=== PATIENT | male | born 1970 | race Caucasian/White ===

== ENCOUNTER 2016-10-17 20:43 | Emergency (ER) | payer OTHER ==
[2016-10-17] MEDS ORDERED: KETOROLAC 30 MG/ML 1 ML VIAL IVP STA (21:19)
[2016-10-17 21:29] LABS: Basophils # (A) 0.1 k/uL (0-0.2); Basophils % (A) 1 %; CH 30.8; CHCM 34.4; Eosinophils # (A) 0.2 k/uL (0-0.7); Eosinophils % (A) 3 %; HCT 42.1 % (39.0-53.0); HDW 2.75; HGB 14.7 gm/dL (13.0-17.5); Luc # (Auto) 0.21; Luc % (Auto) 3; Lymphocytes # (A) 2.9 k/uL (1.0-4.8); Lymphocytes % (A) 45 %; MCH 31.4 pg (25.0-35.0); MCHC 34.9 g/dL (31.0-37.0); Mean Platelet Volume 6.5; Monocytes # (A) 0.3 k/uL (0-1.0); Monocytes % (A) 5 %; Neutrophils # (A) 2.7 k/uL (1.3-7.7); Neutrophils % (A) 43 %; RBC 4.68 m/uL (4.30-5.90); RDW 13.2 % (11.5-15.5); WBC 6.4 k/uL (3.8-10.6); WBC (Perox) 6.35
--- NOTE | 2016-10-17 21:29 | ED ---
Fall HPI - General Chief Complaint: Fall Stated Complaint: confusion/seizure Time Seen by Provider: 10/17/16 21:08 Source: patient, family Mode of arrival: ambulatory - History of Present Illness Initial Comments: Patient's a 45-year-old man who presents to be evaluated after a fall. Patient believes she was sitting on the side of his bed and fell onto the floor. He is not sure he states he may have had a seizure as he does have seizure disorder. The patient's was in another room, heard the fall and went to check on him. She states that he was not able to tell her exactly what happened. He complains of lumbar back and left hip pain. He denies any other injury. He denies headache or neck pain. He is not having any chest pain, dyspnea or cough. The patient denies abdominal pain. MD Complaint: fall Onset/Timin -: hour(s) Fall From: out of bed When Fall Occurred: 1 hour [employer] Fall Witnessed: no Place Fall Occurred: home Loss of Consciousness: unsure Prolonged Down Time?: no Symptoms Prior to Fall: none Location: back Severity: severe - Related Data Home Medications Medication Instructions Recorded Confirmed Escitalopram [Lexapro] 20 mg PO DAILY 12/31/13 10/17/16 Acetaminophen with Codeine 1 tab PO TID PRN 04/23/16 10/17/16 [Acetaminophen-Cod #3 Tablet] Aspirin EC [Ecotrin Low Dose] 81 mg PO DAILY 04/23/16 10/17/16 Metoprolol Succinate [Toprol XL] 12.5 mg PO DAILY 04/23/16 10/17/16 Naproxen 500 mg PO BID PRN 04/23/16 10/17/16 busPIRone HCL 15 mg PO BID 04/23/16 10/17/16 Cholecalciferol [Vitamin D3] 2,000 unit PO DAILY 10/17/16 10/17/16 Cyclobenzaprine [Flexeril] 10 mg PO Q8H PRN 10/17/16 10/17/16 Melatonin 5 mg PO HS 10/17/16 10/17/16 Multivitamin [Men's Multi-Vitamin] 1 tab PO DAILY 10/17/16 10/17/16 Nitroglycerin Sl Tabs [Nitrostat] 0.4 mg SUBLINGUAL Q5M PRN 10/17/16 10/17/16 [place]-3 Fatty Acids/Fish Oil [Fish 1 cap PO DAILY 10/17/16 10/17/16 Oil 1,000 mg Softgel] Simvastatin [Zocor] 40 mg PO HS 10/17/16 10/17/16 Topiramate [Topamax] 50 mg PO BID 10/17/16 10/17/16 busPIRone HCL [Buspar] 7.5 mg PO HS 10/17/16 10/17/16 traZODone HCL 50 mg PO HS 10/17/16 10/17/16 Allergies Allergy/AdvReac Type Severity Reaction Status Date / Time carbamazepine [From Tegretol] Allergy Swelling/Se Verified 10/17/16 21:06 izure Penicillins Allergy Per Verified 10/17/16 21:06 Allergy Test Review of Systems ROS Statement: Those systems with pertinent positive or pertinent negative responses have been documented in the HPI. ROS Other: All systems not noted in ROS Statement are negative. Constitutional: Denies: fever, chills, weakness Eyes: Denies: vision change ENT: Denies: epistaxis Respiratory: Denies: cough, dyspnea Cardiovascular: Denies: chest pain, palpitations Gastrointestinal: Denies: abdominal pain, vomiting, diarrhea, melena, hematochezia Genitourinary: Denies: dysuria, hematuria, testicular pain Musculoskeletal: Reports: as per HPI, back pain, arthralgia Skin: Denies: rash Neurological: Denies: headache, weakness, numbness Past Medical History Past Medical History: Asthma, Cancer, Hyperlipidemia, Myocardial Infarction ([place]) Additional Past Medical History / Comment(s): epileptic , chronic back pain Last Myocardial Infarction Date:: 2000 History of Any Multi-Drug Resistant Organisms: None Reported Past Surgical History: Back Surgery Past Anesthesia/Blood Transfusion Reactions: No Reported Reaction Past Psychological History: PTSD Smoking Status: Light tobacco smoker Past Alcohol Use History: Occasional Past Drug Use History: None Reported General Exam Limitations: no limitations General appearance: alert, in no apparent distress Head exam: Present: atraumatic, normocephalic, normal inspection Eye exam: Present: normal appearance. Absent: scleral icterus, conjunctival injection ENT exam: Present: normal oropharynx Neck exam: Present: normal inspection, full ROM Respiratory exam: Present: normal lung sounds bilaterally. Absent: respiratory distress, wheezes, rales, rhonchi, stridor Cardiovascular Exam: Present: regular rate, normal rhythm, normal heart sounds. Absent: systolic murmur, diastolic murmur, rubs, gallop GI/Abdominal exam: Present: soft. Absent: distended, tenderness, guarding, rebound Back exam: Present: normal inspection, vertebral tenderness. Absent: CVA tenderness (R), CVA tenderness (L), paraspinal tenderness Neurological exam: Present: alert, oriented X3, CN II-XII intact, reflexes normal. Absent: motor sensory deficit Skin exam: Present: warm, dry, intact, normal color. Absent: rash Course Vital Signs 10/17/16 10/17/16 20:44 21:02 Temperature 98.2 F Pulse Rate 73 77 Respiratory 20 16 Rate Blood Pressure 146/84 152/88 O2 Sat by Pulse 99 98 Oximetry Medical Decision Making - Lab Data Result diagrams: 10/17/16 21:10 10/17/16 21:21 Lab Results 10/17/16 10/17/16 Range/Units 21:10 21:21 WBC 6.4 (3.8-10.6) k/uL RBC 4.68 (4.30-5.90) m/uL Hgb 14.7 (13.0-17.5) gm/dL Hct 42.1 (39.0-53.0) % MCV 90.0 (80.0-100.0) fL MCH 31.4 (25.0-35.0) pg MCHC 34.9 (31.0-37.0) g/dL RDW 13.2 (11.5-15.5) % Plt Count 229 (150-450) k/uL Neutrophils % 43 % Lymphocytes % 45 % Monocytes % 5 % Eosinophils % 3 % Basophils % 1 % Neutrophils # 2.7 (1.3-7.7) k/uL Lymphocytes # 2.9 (1.0-4.8) k/uL Monocytes # 0.3 (0-1.0) k/uL Eosinophils # 0.2 (0-0.7) k/uL Basophils # 0.1 (0-0.2) k/uL Sodium 139 (137-145) mmol/L Potassium 4.3 (3.5-5.1) mmol/L Chloride 109 H (98-107) mmol/L Carbon Dioxide 22 (22-30) mmol/L Anion Gap 8 mmol/L BUN 22 H (9-20) mg/dL Creatinine 0.90 (0.66-1.25) mg/dL Est GFR (MDRD) Af Amer >60 (>60 ml/min/1.73 sqM) Est GFR (MDRD) Non-Af >60 (>60 ml/min/1.73 sqM) Glucose 93 (74-99) mg/dL Calcium 9.0 (8.4-10.2) mg/dL Disposition Clinical Impression: Fall, Back contusion Disposition: HOME SELF-CARE Condition: Good Instructions: Contusion in Adults (ED) Referrals: Shahriar Wright DO [Primary Care Provider] - 1-2 days
[2016-10-17 21:42] LABS: Anion Gap 8 mmol/L; Blood Urea Nitrogen 22 mg/dL (9-20); Carbon Dioxide 22 mmol/L (22-30); Chloride 109 mmol/L (98-107); Glucose 93 mg/dL (74-99); Non-African American GFR(MDRD) >60 (>60 ml/min/1.73 sqM); Potassium 4.3 mmol/L (3.5-5.1); Sodium 139 mmol/L (137-145)
--- NOTE | 2016-10-17 21:49 | XR ---
EXAMINATION TYPE: XR lumbar spine 2 or 3V DATE OF EXAM: 10/17/2016 9:35 PM CLINICAL HISTORY: pain TECHNIQUE: Three views of the lumbar spine are submitted. COMPARISON: None. FINDINGS: There are 5 lumbar type vertebral bodies identified. The lumbar spine shows satisfactory alignment w ithout evidence of acute fracture or dislocation. Vertebral body heights are within normal limits. Moderate degenerative disc space narrowing at L4-5 and L5-S1 ventral spondylosis. The overlying soft tissue appears unremarkable. IMPRESSION: No acute fracture or dislocation is seen in the lumbar spine. ICD 10 NO FRACTURE, INITIAL EVALUATION
--- NOTE | 2016-10-17 21:50 | XR ---
EXAMINATION TYPE: XR Hip Complete LT DATE OF EXAM: 10/17/2016 9:35 PM CLINICAL HISTORY: pain TECHNIQUE: AP and frogleg views of the left hip are obtained. COMPARISON: None. FINDINGS: There is no acute fracture/dislocation evident. The joint space appears within normal li mits. The overlying soft tissue appears unremarkable. IMPRESSION: 1. There is no acute fracture or dislocation.ICD 10 NO FRACTURE, INITIAL EVALUATION
[2016-10-17] MEDS ORDERED: BACLOFEN 10 MG TAB PO STA (23:10)
[2016-10-17 23:32] VITALS: BP 138/78; PULSE 66; RESP 18; TEMP 99
== END 2016-10-17 23:32 | disposition home or self-care (01) ==
LOC: EC 20:43
DX: S30.0XXA Contusion of lower back and pelvis, initial encounter (principal); M25.552 Pain in left hip; J45.909 Unspecified asthma, uncomplicated; E78.5 Hyperlipidemia, unspecified; I25.2 Old myocardial infarction; F17.200 Nicotine dependence, unspecified, uncomplicated; Z85.9 Personal history of malignant neoplasm, unspecified; Z79.82 Long term (current) use of aspirin; Z88.0 Allergy status to penicillin; Z88.8 Allergy status to other drugs, medicaments and biological substances; W06.XXXA Fall from bed, initial encounter; Y92.009 Unspecified place in unspecified non-institutional (private) residence as the place of occurrence of the external cause
CPT/HCPCS: 36415; 80048; 85025; 72100; 73502; 99284; 96374; J1885

== ENCOUNTER 2016-10-28 11:40 | Emergency (ER) | payer OTHER ==
--- NOTE | 2016-10-28 12:28 | ED ---
General Adult HPI - General Chief complaint: Back Pain/Injury Stated complaint: Back/Hip Pain/Tingling in legs Time Seen by Provider: 10/28/16 12:01 Source: patient, RN notes reviewed Mode of arrival: wheelchair Limitations: no limitations - History of Present Illness Initial comments: Patient 45-year-old male who presents emergency room today with a chief complaint of pain to his lower back and left hip area. He states it's worse with ambulation when he put weight on the left leg. Patient does admit to a back injury with a fall after a seizure that occurred 11 days ago. He states that he was warned that he would not feel well for 10 days. He states he still not feeling well and was advised to return to emergency room if any symptoms increase. He does admit to pain that radiates down the left leg. He admits some numbness and tingling at times. Denies any bowel or bladder incontinence or retention. Denies any saddle anesthesia. Patient denies any recent fever, chills, shortness of breath, chest pain, abdominal pain, nausea or vomiting, dysuria or hematuria, constipation or diarrhea, headaches or visual changes, or any other complaints. - Related Data Home Medications Medication Instructions Recorded Confirmed Escitalopram [Lexapro] 20 mg PO DAILY 12/31/13 10/28/16 Acetaminophen with Codeine 1 tab PO TID PRN 04/23/16 10/28/16 [Acetaminophen-Cod #3 Tablet] Aspirin EC [Ecotrin Low Dose] 81 mg PO DAILY 04/23/16 10/28/16 Metoprolol Succinate [Toprol XL] 12.5 mg PO DAILY 04/23/16 10/28/16 Naproxen 500 mg PO BID PRN 04/23/16 10/28/16 busPIRone HCL 15 mg PO TID 04/23/16 10/28/16 Cholecalciferol [Vitamin D3] 2,000 unit PO DAILY 10/17/16 10/28/16 Cyclobenzaprine [Flexeril] 10 mg PO DAILY PRN 10/17/16 10/28/16 Melatonin 5 mg PO HS 10/17/16 10/28/16 Multivitamin [Men's Multi-Vitamin] 1 tab PO DAILY 10/17/16 10/28/16 Nitroglycerin Sl Tabs [Nitrostat] 0.4 mg SUBLINGUAL Q5M PRN 10/17/16 10/28/16 [place]-3 Fatty Acids/Fish Oil [Fish 1 cap PO DAILY 10/17/16 10/28/16 Oil 1,000 mg Softgel] Simvastatin [Zocor] 40 mg PO HS 10/17/16 10/28/16 Topiramate [Topamax] 50 mg PO BID 10/17/16 10/28/16 traZODone HCL 50 mg PO HS 10/17/16 10/28/16 Previous Rx's Medication Instructions Recorded Dexamethasone 0.75 mg PO DIRECTED #12 tablet 10/28/16 Allergies Allergy/AdvReac Type Severity Reaction Status Date / Time carbamazepine [From Tegretol] Allergy Swelling/Se Verified 10/28/16 12:15 izure Penicillins Allergy Per Verified 10/28/16 12:15 Allergy Test Review of Systems ROS Statement: Those systems with pertinent positive or pertinent negative responses have been documented in the HPI. ROS Other: All systems not noted in ROS Statement are negative. Past Medical History Past Medical History: Asthma, Cancer, Hyperlipidemia, Myocardial Infarction ([place]) , Seizure Disorder Additional Past Medical History / Comment(s): epileptic , chronic back pain Last Myocardial Infarction Date:: 2000 History of Any Multi-Drug Resistant Organisms: None Reported Past Surgical History: Back Surgery Past Anesthesia/Blood Transfusion Reactions: No Reported Reaction Past Psychological History: PTSD Smoking Status: Light tobacco smoker Past Alcohol Use History: Occasional Past Drug Use History: None Reported General Exam - General Exam Comments Initial Comments: General: The patient is awake and alert, in no distress, and does not appear acutely ill. Neck: The neck is supple, there is no tenderness or JVD. Cardiovascular: There is a regular rate and rhythm. No murmur, rub or gallop is appreciated. Respiratory: Lungs are clear to auscultation, respirations are non-labored, breath sounds are equal. No wheezes, stridor, rales, or rhonchi. Gastrointestinal: Soft, non-distended, non-tender abdomen without masses or organomegaly noted. There is no rebound or guarding present. No CVA tenderness. Bowel sounds are unremarkable. Back: Old surgical incision in the lower lumbar. Patient does have mild tenderness lumbar spine diffusely throughout midline. Increased paravertebral tenderness both the left and right sides. Pain reproduced with turning and twisting and bending. Positive straight leg raise test. Sensations intact with pulses equal bilaterally 2+. Musculoskeletal: Normal ROM, no tenderness. Strength 5/5. Sensation intact. Pulses equal bilaterally 2+. Negative small roll maneuver to the left hip. Neurological: A&O x 3. CN II-XII intact, There are no obvious motor or sensory deficits. Coordination appears grossly intact. Speech is normal. Skin: Skin is warm and dry and no rashes or lesions are noted. Psychiatric: Cooperative, appropriate mood & affect, normal judgment. Limitations: no limitations Course Vital Signs 10/28/16 11:47 Temperature 98.1 F Pulse Rate 72 Respiratory 20 Rate Blood Pressure 132/84 O2 Sat by Pulse 99 Oximetry Medical Decision Making - Medical Decision Making Patient reexamined at this time shows no signs of distress. Patient x-rays are negative. Patient will be discharged home advised continue pain medication that he has reached placed on steroids for his radiculopathy pain. Disposition Clinical Impression: Acute lumbar radiculopathy Disposition: HOME SELF-CARE Condition: Good Instructions: Lumbar Radiculopathy (ED) Additional Instructions: Please use medication as discussed. Please follow-up with family doctor in the next 2 days of symptoms have not improved. Please return to emergency room if the symptoms increase or worsen or for any other concerns. Prescriptions: Dexamethasone 0.75 mg PO DIRECTED #12 tablet Time of Disposition: 13:15
--- NOTE | 2016-10-28 13:04 | XR ---
EXAMINATION TYPE: XR lumbar spine 2 or 3V DATE OF EXAM: 10/28/2016 12:32 PM CLINICAL HISTORY: Fall on 10/17/2016 with subsequent low back pain. TECHNIQUE: 2 views of the lumbar spine are submitted. COMPARISON: None. FINDINGS: There are 5 lumbar type vertebral bodies identified. Vertebral body alignment and height are maintain ed. No evidence of fracture or dislocation. Vertebral body heights are within normal limits. Modera te degenerative disc space narrowing at L4-5 and L5-S1 ventral spondylosis is unchanged from the prio r exam. The overlying soft tissue appears unremarkable. IMPRESSION: Unchanged exam in comparison to the prior with no evidence of fracture or dislocation. Moderate degen erative changes of the lower lumbosacral spine.
[2016-10-28 13:22] VITALS: BP 133/87; PULSE 70; RESP 18; TEMP 97.9
== END 2016-10-28 13:21 | disposition home or self-care (01) ==
LOC: EC 11:40
DX: M54.16 Radiculopathy, lumbar region (principal); E78.5 Hyperlipidemia, unspecified; I25.2 Old myocardial infarction; G40.909 Epilepsy, unspecified, not intractable, without status epilepticus; F17.200 Nicotine dependence, unspecified, uncomplicated; Z79.82 Long term (current) use of aspirin; Z79.899 Other long term (current) drug therapy; Z88.0 Allergy status to penicillin; Z88.8 Allergy status to other drugs, medicaments and biological substances; W18.30XA Fall on same level, unspecified, initial encounter
CPT/HCPCS: 72100; 99283

== ENCOUNTER 2016-11-08 18:40 | Emergency (ER) | payer MEDICARE, OTHER ==
[~2016-11-08 18:40] MED LIST: PROPARACAINE 0.5% OPHTH DROPS 15 ML BTL ONE
[2016-11-08 18:55] VITALS: BP 121/78; PULSE 77; RESP 16; TEMP 97.5
[2016-11-08] MEDS ORDERED: PROPARACAINE 0.5% OPHTH DROPS 15 ML BTL LEFT EYE STA (19:01)
--- NOTE | 2016-11-08 19:08 | ED ---
Eye Problem HPI - General Chief complaint: Eye Problems Stated complaint: left eye problem Time Seen by Provider: 11/08/16 18:53 Source: patient, RN notes reviewed Mode of arrival: ambulatory Limitations: no limitations - History of Present Illness Initial comments: Patient is a 45-year-old male presents to the emergency room for evaluation of left eye redness and pain. Patient states he had a small pimple over the inner portion of his left eyelid that his popped last night. Patient states that after they popped the pimple a film performed over his eye and is affecting his vision. Patient states he hasn't been able to see clear out of his left eye since. Patient states he has been having pain at the upper eyelid. Patient states he is afraid his eye is infected. Patient denies any pain while blinking. Patient denies fevers or chills. Patient denies headache or dizziness. Patient denies any recent trauma to his eye. - Related Data Home Medications Medication Instructions Recorded Confirmed Escitalopram [Lexapro] 20 mg PO DAILY 12/31/13 10/28/16 Acetaminophen with Codeine 1 tab PO TID PRN 04/23/16 10/28/16 [Acetaminophen-Cod #3 Tablet] Aspirin EC [Ecotrin Low Dose] 81 mg PO DAILY 04/23/16 10/28/16 Metoprolol Succinate [Toprol XL] 12.5 mg PO DAILY 04/23/16 10/28/16 Naproxen 500 mg PO BID PRN 04/23/16 10/28/16 busPIRone HCL 15 mg PO TID 04/23/16 10/28/16 Cholecalciferol [Vitamin D3] 2,000 unit PO DAILY 10/17/16 10/28/16 Cyclobenzaprine [Flexeril] 10 mg PO DAILY PRN 10/17/16 10/28/16 Melatonin 5 mg PO HS 10/17/16 10/28/16 Multivitamin [Men's Multi-Vitamin] 1 tab PO DAILY 10/17/16 10/28/16 Nitroglycerin Sl Tabs [Nitrostat] 0.4 mg SUBLINGUAL Q5M PRN 10/17/16 10/28/16 [place]-3 Fatty Acids/Fish Oil [Fish 1 cap PO DAILY 10/17/16 10/28/16 Oil 1,000 mg Softgel] Simvastatin [Zocor] 40 mg PO HS 10/17/16 10/28/16 Topiramate [Topamax] 50 mg PO BID 10/17/16 10/28/16 traZODone HCL 50 mg PO HS 10/17/16 10/28/16 Previous Rx's Medication Instructions Recorded Dexamethasone 0.75 mg PO DIRECTED #12 tablet 10/28/16 Erythromycin Ophth Oint [Romycin 1 applic LEFT EYE QID 10 Days 11/08/16 Ophth Oint] Allergies Allergy/AdvReac Type Severity Reaction Status Date / Time carbamazepine [From Tegretol] Allergy Swelling/Se Verified 11/08/16 18:54 izure Penicillins Allergy Per Verified 11/08/16 18:54 Allergy Test Review of Systems ROS Statement: Those systems with pertinent positive or pertinent negative responses have been documented in the HPI. ROS Other: All systems not noted in ROS Statement are negative. Past Medical History Past Medical History: Asthma, Cancer, Hyperlipidemia, Myocardial Infarction ([place]) , Seizure Disorder Additional Past Medical History / Comment(s): epileptic , chronic back pain Last Myocardial Infarction Date:: 2000 History of Any Multi-Drug Resistant Organisms: None Reported Past Surgical History: Back Surgery Past Anesthesia/Blood Transfusion Reactions: No Reported Reaction Past Psychological History: PTSD Smoking Status: Light tobacco smoker Past Alcohol Use History: Occasional Past Drug Use History: None Reported General Exam - General Exam Comments Initial Comments: Sitting in exam room, no distress. Limitations: no limitations General appearance: alert, in no apparent distress Head exam: Present: atraumatic, normocephalic, normal inspection Eye exam: Present: PERRL, EOMI, other (mild swelling of the inner canthus of the left eye) Pupils: Present: normal accommodation Expanded Eyelids: Normal Inspection: Right, Erythema: Left (upper inner eyelid) Pupils: Regular, Round: Bilateral, Reactive: Bilateral Sclera/Conjunctival: Normal Inspection: Bilateral Anterior chamber: Normal Inspection: Bilateral ENT exam: Present: normal exam Neck exam: Present: normal inspection Extremities exam: Present: normal inspection Back exam: Present: normal inspection Neurological exam: Present: alert, oriented X3, CN II-XII intact, normal gait Psychiatric exam: Present: normal affect, normal mood Skin exam: Present: warm, dry, intact, normal color. Absent: rash Course Vital Signs 11/08/16 18:52 Temperature 97.5 F L Pulse Rate 77 Respiratory 16 Rate Blood Pressure 121/78 O2 Sat by Pulse 97 Oximetry Medical Decision Making - Medical Decision Making Patient is a 45-year-old male since emergency room for evaluation of left eye redness and swelling. Patient does have a slightly erythematous edematous upper eyelid. Patient's left eye was flushed with Connor's lens. Patient states she is able to see clear out of his left eye now. We'll send patient home with erythromycin ointment. Advised patient to follow-up with his primary care provider in 24-48 hours for reevaluation. Patient states he understands everything that was discussed with him. Return parameters discussed. Case discussed with Dr. Elias. Disposition Clinical Impression: Blepharitis Disposition: HOME SELF-CARE Condition: Good Instructions: Eye Lubricant (Into the eye) Additional Instructions: Apply ointment as directed. Apply warm compresses over the eye. Please follow up with primary care provider in 1-2 days. If any new symptom arises or symptoms worsen, return to ER as soon as possible. Prescriptions: Erythromycin Ophth Oint [Romycin Ophth Oint] 1 applic LEFT EYE QID 10 Days Referrals: None,Stated [Primary Care Provider] - 1-2 days Time of Disposition: 19:46
== END 2016-11-08 20:08 | disposition home or self-care (01) ==
LOC: EC 18:40
DX: H01.004 Unspecified blepharitis left upper eyelid (principal); E78.5 Hyperlipidemia, unspecified; G40.909 Epilepsy, unspecified, not intractable, without status epilepticus; I25.2 Old myocardial infarction; F17.200 Nicotine dependence, unspecified, uncomplicated; Z79.82 Long term (current) use of aspirin; Z79.899 Other long term (current) drug therapy; Z88.0 Allergy status to penicillin; Z88.8 Allergy status to other drugs, medicaments and biological substances
CPT/HCPCS: 99283

== ENCOUNTER 2016-12-22 17:25 | Emergency (ER) | payer OTHER ==
[2016-12-22 17:32] VITALS: BP 140/89; PULSE 75; RESP 20; TEMP 98
--- NOTE | 2016-12-22 17:48 | ED ---
Skin/Abscess/FB HPI - General Chief complaint: Skin/Abscess/Foreign Body Stated complaint: abscess Rt axillary Time Seen by Provider: 12/22/16 17:33 Source: patient, RN notes reviewed Mode of arrival: wheelchair Limitations: physical limitation - History of Present Illness Initial comments: 45 yo male presents to the ER with cc of redness and bumps under the right axilla. patient states he does have a day or 2. Patient states it's tender to touch. Patient denies any history of MRSA. Patient states he was concerned due to the patient recently. Patient has been using warm compresses. Patient states that he is not currently having any other symptoms.Patient denies any recent fever, chills, shortness of breath, chest pain, back pain, abdominal pain , nausea vomiting, numbness or tingling, dysuria or hematuria, constipation or diarrhea, headaches or visual changes, or any other current symptoms. - Related Data Home Medications Medication Instructions Recorded Confirmed Escitalopram [Lexapro] 20 mg PO DAILY 12/31/13 10/28/16 Acetaminophen with Codeine 1 tab PO TID PRN 04/23/16 10/28/16 [Acetaminophen-Cod #3 Tablet] Aspirin EC [Ecotrin Low Dose] 81 mg PO DAILY 04/23/16 10/28/16 Metoprolol Succinate [Toprol XL] 12.5 mg PO DAILY 04/23/16 10/28/16 Naproxen 500 mg PO BID PRN 04/23/16 10/28/16 busPIRone HCL 15 mg PO TID 04/23/16 10/28/16 Cholecalciferol [Vitamin D3] 2,000 unit PO DAILY 10/17/16 10/28/16 Cyclobenzaprine [Flexeril] 10 mg PO DAILY PRN 10/17/16 10/28/16 Melatonin 5 mg PO HS 10/17/16 10/28/16 Multivitamin [Men's Multi-Vitamin] 1 tab PO DAILY 10/17/16 10/28/16 Nitroglycerin Sl Tabs [Nitrostat] 0.4 mg SUBLINGUAL Q5M PRN 10/17/16 10/28/16 [place]-3 Fatty Acids/Fish Oil [Fish 1 cap PO DAILY 10/17/16 10/28/16 Oil 1,000 mg Softgel] Simvastatin [Zocor] 40 mg PO HS 10/17/16 10/28/16 Topiramate [Topamax] 50 mg PO BID 10/17/16 10/28/16 traZODone HCL 50 mg PO HS 10/17/16 10/28/16 Previous Rx's Medication Instructions Recorded Dexamethasone 0.75 mg PO DIRECTED #12 tablet 10/28/16 Erythromycin Ophth Oint [Romycin 1 applic LEFT EYE QID 10 Days 11/08/16 Ophth Oint] Clindamycin [Cleocin] 450 mg PO Q8HR #90 capsule 12/22/16 Allergies Allergy/AdvReac Type Severity Reaction Status Date / Time carbamazepine [From Tegretol] Allergy Swelling/Se Verified 12/22/16 17:32 izure Penicillins Allergy Per Verified 12/22/16 17:32 Allergy Test Review of Systems ROS Statement: Those systems with pertinent positive or pertinent negative responses have been documented in the HPI. ROS Other: All systems not noted in ROS Statement are negative. Past Medical History Past Medical History: Asthma, Cancer, Hyperlipidemia, Myocardial Infarction ([place]) , Seizure Disorder Additional Past Medical History / Comment(s): epileptic , chronic back pain Last Myocardial Infarction Date:: 2000 History of Any Multi-Drug Resistant Organisms: None Reported Past Surgical History: Back Surgery Past Anesthesia/Blood Transfusion Reactions: No Reported Reaction Past Psychological History: PTSD Smoking Status: Former smoker Past Alcohol Use History: Occasional Past Drug Use History: None Reported General Exam - General Exam Comments Initial Comments: General: The patient is awake and alert, in no distress, and does not appear acutely ill. Neck: The neck is supple, there is no tenderness. Cardiovascular: There is a regular rate and rhythm. No murmur, rub or gallop is appreciated. Respiratory: Lungs are clear to auscultation, respirations are non-labored, breath sounds are equal. No wheezes, stridor, rales, or rhonchi. Musculoskeletal: sensation intact with 2 + throughout the right upper extremity. patient appear to have redness and erythema to the right axilla with some noted areas of induration. no fluctuant areas. No drainage noted. Neurological: CN II-XII intact, There are no obvious motor or sensory deficits. Coordination appears grossly intact. Speech is normal. Skin: Skin is warm and dry and no rashes or lesions are noted. Psychiatric: Normal mood and affect. Limitations: physical limitation Course Vital Signs 12/22/16 17:30 Temperature 98.0 F Pulse Rate 75 Respiratory 20 Rate Blood Pressure 140/89 O2 Sat by Pulse 98 Oximetry Medical Decision Making - Medical Decision Making 45-year-old male presents for appears to be a cellulitis with a folliculitis to the right axilla. This and will start patient on clinical ice. We discussed using Motrin at home for pain control. We discussed return parameters and for follow-up. We discussed outpatient family's questions. He states he understood Plan. They will be discharged home. Disposition Clinical Impression: Folliculitis, Cellulitis of right axilla Disposition: HOME SELF-CARE Condition: Stable Instructions: Cellulitis (ED), Folliculitis (ED) Additional Instructions: Please use medication as discussed. Please follow up with family doctor if symptoms have not improved over the next two days. Please return to the emergency room if your symptoms increase or worsen or for any other concerns. Prescriptions: Clindamycin [Cleocin] 450 mg PO Q8HR #90 capsule Referrals: Shahriar Wright DO [Primary Care Provider] - 1-2 days Time of Disposition: 17:48
== END 2016-12-22 17:48 | disposition home or self-care (01) ==
LOC: EC 17:25
DX: L03.111 Cellulitis of right axilla (principal); L73.9 Follicular disorder, unspecified; E78.5 Hyperlipidemia, unspecified; G40.909 Epilepsy, unspecified, not intractable, without status epilepticus; G89.29 Other chronic pain; I25.2 Old myocardial infarction; Z87.891 Personal history of nicotine dependence; Z79.82 Long term (current) use of aspirin; Z79.899 Other long term (current) drug therapy; Z88.0 Allergy status to penicillin; Z88.8 Allergy status to other drugs, medicaments and biological substances
CPT/HCPCS: 99283

== ENCOUNTER → 2016-12-24 | Outpatient (CLI) | payer OTHER ==
--- NOTE | 2016-12-24 13:28 | MR ---
MRI CERVICAL SPINE: CLINICAL HISTORY: Cervical disc disorder (M 50.90) per order. Headache with neck pain and stenosis since 1999 and causing bilateral arm and finger pain or weakness per patient after fall injury TECHNIQUE: Multiplanar, multisequence imaging of the cervical spine is performed without IV contrast. COMPARISON: None. FINDINGS: Exam is suboptimal as is degraded by patient motion artifact. Sagittal images of the cervic al spine show the craniocervical junction to appear within normal limits. The cervical and upper tho racic spinal cord is normal in course, caliber, and signal. Vertebral alignment is straightened. Th e vertebral body heights are normal. There is mild disc space narrowing C5-C6 and C6-C7 levels. Some small posterior disc herniations are seen at these levels on sagittal images. There is mild multilev el anterior spurring. There is more moderate spurring with heterogeneous increased T1 and T2 signal c onsistent with Modic type II degenerative change at C5-C6 disc space level. Axial images show the C2-C3 level to appear within normal limits. Axial images at C3-C4 level show small central disc protrusion effacing anterior thecal sac nearly up to ventral surface of spinal cord, bilateral neural foramina are patent. Axial images at C4-C5 level show uncovertebral facet degenerative changes bilaterally causing moderat e bilateral neural foraminal narrowing. Blooming artifact degradation is noted which may exaggerate d egree of narrowing. There is central disc protrusion effacing anterior thecal sac. Axial images at C5-C6 level show broad-based posterior disc protrusion effacing anterior thecal sac u p to ventral surface of spinal cord which is flattened on the left aspect. There is moderate to advan denisa right greater than left neural foraminal narrowing at this level suspected. Axial images at C6-C7 level show prominent eccentric left foraminal disc protrusion effacing anterola teral thecal sac and causing advanced left-sided neural foraminal narrowing seen best on axial image 16. Right-sided neural foramen is patent. Axial images at C7-T1 level are within normal limits. IMPRESSION: Straightening of cervical spine with multilevel degenerative changes identified as detail ed above, most prominent findings are noted C5-C6 and C6-C7 level. There is marked effacement of the left C6-C7 neural foramina noted.
== END | disposition home or self-care (01) ==
LOC: RADMRIMAIN 10:58
PROVIDERS: ATTEND Nurse Practitioner Acute Care
DX: M47.812 Spondylosis without myelopathy or radiculopathy, cervical region (principal)
CPT/HCPCS: 72141

== ENCOUNTER 2017-01-28 19:24 | Emergency (ER) | payer OTHER ==
[2017-01-28] MEDS ORDERED: RX INFO: IV CONTRAST WAS GIVEN 1 EACH MISC MISCELLANE PRN (19:59)
--- NOTE | 2017-01-28 20:04 | ED ---
General Adult HPI - General Chief complaint: ENT Stated complaint: post op neck surgery/drainage & pain Time Seen by Provider: 01/28/17 19:50 Source: patient, family, RN notes reviewed Mode of arrival: ambulatory Limitations: no limitations - History of Present Illness Initial comments: This is a 46-year-old male who presents to the emergency department status post cervical fusion patient states he had the surgery on January 23 and sensory time he thought it difficult to swallow. Patient was started on steroids 2 days ago he stated the first aid help but it hasn't been helping at all today and is finding it painful to even swallow saliva. Patient states he is able to get fluids down but it hurts to do so. Patient states he has to force himself. Patient denies any fevers patient denies any shortness of breath or difficulty breathing. Patient denies any redness from the wound or any new drainage except for a little bleeding around the wound. Patient has been in contact with the surgeon on multiple occasions. Patient denies any chest pain. Patient denies any abdominal pain patient denies nausea vomiting diarrhea. - Related Data Home Medications Medication Instructions Recorded Confirmed Aspirin EC [Ecotrin Low Dose] 81 mg PO DAILY 04/23/16 01/28/17 Metoprolol Succinate [Toprol XL] 12.5 mg PO DAILY 04/23/16 01/28/17 Cyclobenzaprine [Flexeril] 10 mg PO Q8H PRN 10/17/16 01/28/17 Melatonin 5 mg PO HS 10/17/16 01/28/17 Nitroglycerin Sl Tabs [Nitrostat] 0.4 mg SUBLINGUAL Q5M PRN 10/17/16 01/28/17 Simvastatin [Zocor] 40 mg PO HS 10/17/16 01/28/17 Benzoyl Peroxide [Benzac AC Wash] 1 applic TOPICAL BID 01/28/17 01/28/17 Cetirizine HCl 10 mg PO DAILY 01/28/17 01/28/17 Diazepam [Valium] 5 mg PO Q8H PRN 01/28/17 01/28/17 HYDROcodone/APAP 5-325MG [[place] 1 tab PO Q4-6H PRN 01/28/17 01/28/17 5-325] Lidocaine 5% Patch [Lidoderm] 1 patch TOPICAL DAILY 01/28/17 01/28/17 Topiramate [Topamax] 100 mg PO BID 01/28/17 01/28/17 Allergies Allergy/AdvReac Type Severity Reaction Status Date / Time carbamazepine [From Tegretol] Allergy Swelling/Se Verified 01/28/17 20:28 izure Penicillins Allergy Per Verified 01/28/17 20:28 Allergy Test Review of Systems ROS Statement: Those systems with pertinent positive or pertinent negative responses have been documented in the HPI. ROS Other: All systems not noted in ROS Statement are negative. Past Medical History Past Medical History: Asthma, Cancer, Hyperlipidemia, Myocardial Infarction ([place]) , Seizure Disorder Additional Past Medical History / Comment(s): epileptic , chronic back pain Last Myocardial Infarction Date:: 2000 History of Any Multi-Drug Resistant Organisms: None Reported Past Surgical History: Back Surgery Past Anesthesia/Blood Transfusion Reactions: No Reported Reaction Past Psychological History: PTSD Smoking Status: Former smoker Past Alcohol Use History: Occasional Past Drug Use History: None Reported General Exam - General Exam Comments Initial Comments: GENERAL: Patient is well-developed and well-nourished. Patient is nontoxic and well- hydrated and is in mild distress. ENT: Neck is soft and supple. No significant lymphadenopathy is noted. Oropharynx is clear. Moist mucous membranes. Incision the neck does not appear to be infected is no erythema no swelling. There is a little bit of dried blood but no active drainage. EYES: The sclera were anicteric and conjunctiva were pink and moist. Extraocular movements were intact and pupils were equal round and reactive to light. Eyelids were unremarkable. PULMONARY: Unlabored respirations. Good breath sounds bilaterally. No audible rales rhonchi or wheezing was noted. CARDIOVASCULAR: There is a regular rate and rhythm without any murmurs gallops or rubs. ABDOMEN: Soft and nontender with normal bowel sounds. SKIN: Skin is clear with no lesions or rashes and otherwise unremarkable. NEUROLOGIC: Patient is alert and oriented x3. Cranial nerves II through XII are grossly intact. Motor and sensory are also intact. Normal speech, volume and content. MUSCULOSKELETAL: Normal extremities with adequate strength and full range of motion. No lower extremity swelling or edema. No calf tenderness. LYMPHATICS: No significant lymphadenopathy is noted PSYCHIATRIC: Normal psychiatric evaluation. Limitations: no limitations Course Vital Signs 01/28/17 19:46 Temperature 98.1 F Pulse Rate 70 Respiratory 18 Rate Blood Pressure 134/77 O2 Sat by Pulse 98 Oximetry Medical Decision Making - Medical Decision Making I spoke with Dr. Min he would like the patient to follow-up with him tomorrow. He stated that the patient is well study tomorrow. He was comfortable letting the patient go home as long as the patient did not have any breathing problems. I will back and reevaluated the patient patient again said he had no breathing problems whatsoever and he was fine with going home and following up with Dr. Min. - Lab Data Result diagrams: 01/28/17 20:21 01/28/17 20:21 Lab Results 01/28/17 01/28/17 01/28/17 Range/Units 20:21 20:21 20:21 WBC 14.6 H (3.8-10.6) k/uL RBC 4.49 (4.30-5.90) m/uL Hgb 14.1 (13.0-17.5) gm/dL Hct 41.2 (39.0-53.0) % MCV 91.8 (80.0-100.0) fL MCH 31.3 (25.0-35.0) pg MCHC 34.1 (31.0-37.0) g/dL RDW 13.4 (11.5-15.5) % Plt Count 334 (150-450) k/uL Neutrophils % 84 % Lymphocytes % 11 % Monocytes % 4 % Eosinophils % 0 % Basophils % 0 % Neutrophils # 12.2 H (1.3-7.7) k/uL Lymphocytes # 1.6 (1.0-4.8) k/uL Monocytes # 0.6 (0-1.0) k/uL Eosinophils # 0.0 (0-0.7) k/uL Basophils # 0.1 (0-0.2) k/uL Sodium 143 (137-145) mmol/L Potassium 4.1 (3.5-5.1) mmol/L Chloride 105 (98-107) mmol/L Carbon Dioxide 21 L (22-30) mmol/L Anion Gap 17 mmol/L BUN 23 H (9-20) mg/dL Creatinine 1.00 (0.66-1.25) mg/dL Est GFR (MDRD) Af Amer >60 (>60 ml/min/1.73 sqM) Est GFR (MDRD) Non-Af >60 (>60 ml/min/1.73 sqM) Glucose 118 H (74-99) mg/dL Plasma Lactic Acid Carlos 1.7 (0.7-2.0) mmol/L Calcium 10.0 (8.4-10.2) mg/dL Total Bilirubin 0.5 (0.2-1.3) mg/dL AST 44 (17-59) U/L ALT 75 H (21-72) U/L Alkaline Phosphatase 146 H (38-126) U/L Total Protein 6.9 (6.3-8.2) g/dL Albumin 4.2 (3.5-5.0) g/dL Disposition Clinical Impression: Dysphagia Disposition: HOME SELF-CARE Condition: Good Additional Instructions: Patient should continue his steroids as prescribed by Dr. Schwab. Patient to follow-up with Dr. Min tomorrow. Patient returns as any difficulty breathing. Referrals: Shahriar Wright DO [Primary Care Provider] - 1-2 days Time of Disposition: 21:10
[2017-01-28] MEDS ORDERED: SODIUM CHLORIDE 0.9% 500 ML IV ONE (20:14)
[2017-01-28] MEDS ORDERED: SODIUM CHLORIDE 0.9% 1,000 ML IV ONE (20:14)
[2017-01-28 20:31] LABS: Basophils # (A) 0.1 k/uL (0-0.2); Basophils % (A) 0 %; CH 31.8; CHCM 34.8; Eosinophils % (A) 0 %; HCT 41.2 % (39.0-53.0); HDW 2.88; HGB 14.1 gm/dL (13.0-17.5); Luc # (Auto) 0.16; Luc % (Auto) 1; Lymphocytes # (A) 1.6 k/uL (1.0-4.8); Lymphocytes % (A) 11 %; MCH 31.3 pg (25.0-35.0); MCHC 34.1 g/dL (31.0-37.0); MCV 91.8 fL (80.0-100.0); Mean Platelet Volume 7.4; Monocytes # (A) 0.6 k/uL (0-1.0); Monocytes % (A) 4 %; Neutrophils # (A) 12.2 k/uL (1.3-7.7); Neutrophils % (A) 84 %; RBC 4.49 m/uL (4.30-5.90); RDW 13.4 % (11.5-15.5); WBC 14.6 k/uL (3.8-10.6); WBC (Perox) 13.46
[2017-01-28 20:46] LABS: ALT 75 U/L (21-72); AST 44 U/L (17-59); Alkaline Phosphatase 146 U/L (38-126); Anion Gap 17 mmol/L; Blood Urea Nitrogen 23 mg/dL (9-20); Carbon Dioxide 21 mmol/L (22-30); Chloride 105 mmol/L (98-107); Glucose 118 mg/dL (74-99); Non-African American GFR(MDRD) >60 (>60 ml/min/1.73 sqM); Potassium 4.1 mmol/L (3.5-5.1); Sodium 143 mmol/L (137-145); Total Bilirubin 0.5 mg/dL (0.2-1.3); Total Protein 6.9 g/dL (6.3-8.2)
[2017-01-28] MEDS ORDERED: ONDANSETRON 4 MG/2 ML VIAL IVP STA (20:49)
[2017-01-28] MEDS ORDERED: HYDROmorphone 1 MG/ML 1 ML SYRINGE IVP STA (20:49)
--- NOTE | 2017-01-28 20:55 | CT ---
EXAMINATION TYPE: CT soft tissue neck w con DATE OF EXAM: 01/28/2017 HISTORY: Difficulty swallowing after cervical fusion x5 days ago. COMPARISON: NONE CT DLP: 763.1 mGycm. Automated Exposure Control for Dose Reduction was Utilized. TECHNIQUE: CT scan of the neck is performed with IV Contrast, patient injected with 100 mL of Omnipa que 300, axial images are obtained, coronal and sagittal reformatted images are reviewed. FINDINGS: Airway: Nasopharyngeal and pharyngeal airways are patent. There is some mild prevertebral soft tissue swelling and fluid with air mid to lower cervical spine, nonspecific finding extending to right of m idline. Developing infectious process cannot be excluded though findings certainly could be postsurgi alba in nature. This extends inferiorly to level of thyroid gland. Airway remains grossly patent. Ther e are 6 mm left thyroid nodule on axial image 36. Parotid/submandibular glands: No gross abnormality seen. Carotid/Vascular Structures: Slightly medial course to bilateral carotid arteries is seen without sig nificant stenosis appreciated. Osseous Structures: There is artifact from metallic cages and anterior fusion plate C5-C7 level . Ali gnment is satisfactory and straightened. Other: No greater than 1 cm neck adenopathy is clearly seen. IMPRESSION: Moderate amount of ill-defined fluid and air mid to lower cervical spine prevertebral reg ion extending into right neck is nonspecific finding could reflect product of recent surgery. Infecti ous process cannot be excluded. No well-formed thick-walled abscess is present currently.
[2017-01-28 21:39] VITALS: BP 128/84; PULSE 58; RESP 19; TEMP 98.4
== END 2017-01-28 21:39 | disposition home or self-care (01) ==
LOC: EC 19:24
DX: R13.10 Dysphagia, unspecified (principal); E78.5 Hyperlipidemia, unspecified; I25.2 Old myocardial infarction; F43.10 Post-traumatic stress disorder, unspecified; G40.909 Epilepsy, unspecified, not intractable, without status epilepticus; Z87.891 Personal history of nicotine dependence; Z79.82 Long term (current) use of aspirin; Z79.899 Other long term (current) drug therapy; Z88.0 Allergy status to penicillin; Z88.8 Allergy status to other drugs, medicaments and biological substances
CPT/HCPCS: 36415; 80053; 83605; 85025; 87040; 70491; 99284; 96374; 96375; 96361; J2405; J1170; Q9967

== ENCOUNTER → 2017-01-30 | Outpatient (CLI) | payer OTHER ==
--- NOTE | 2017-02-01 10:14 | FL ---
ESOPHOGRAM. HISTORY: Dysphagia, status post cervical ACDF Esophagram was performed per the air contrast technique. The patient swallowed barium and effervesce nt crystals without difficulty or delay. Esophageal peristalsis and motility appear to be within normal limits. There is no evidence for filling defect, mass or diverticulum. No hiatal hernia seen. Subsequently single contrast cervical esophagram was performed which fails demonstrate evidence for a spiration penetration or mass. IMPRESSION: Prominence of the pre-vertebral cervical soft tissues not unusual for the patient's posto perative state. No evidence for obstruction, esophagitis or hiatal hernia.
== END | disposition home or self-care (01) ==
LOC: RADFLWHC 13:24
PROVIDERS: ATTEND Neurological Surgery
DX: R13.10 Dysphagia, unspecified (principal); Z98.1 Arthrodesis status; Z98.890 Other specified postprocedural states
CPT/HCPCS: 74220